=== PATIENT | male | born 2000 | race Caucasian/White ===

== ENCOUNTER → 2021-01-04 14:54 | Outpatient (CLI) | payer MEDICAID, SELFPAY ==
--- NOTE | 2021-01-04 14:57 | US_ITS ---
STUDY: SUPERFICIAL ULTRASOUND - LEFT UPPER ARM REASON FOR EXAM: Male, 20 years old. Palpable lump TECHNIQUE: A superficial ultrasound was performed with real-time and static mcmanus-scale imaging. COMPARISON: None. FINDINGS: Sonographic evaluation of the left upper arm in the area of concern shows a hypoechoic 2.1 x 1.7 x 1.1 cm lymph node. There is evidence of some central hyperemia. No associated fluid collection or other associated lymph node. Short term follow-up recommended to ensure resolution. If there is not improvement over the next 3-4 weeks, biopsy may be recommended US/Ext Non Vasc Limited/Soft Tiss IMPRESSION: Enlarged lymph node corresponds to the palpable lump. Short-term follow-up recommended to assure resolution Electronically Signed: Vikas Ruiz MD at 16:25 EDT , Service support ,
== END ==
PROVIDERS: Referring Provider Physician Assistant Surgical; Visit Provider Physician Assistant Surgical
DX: L02.414 Cutaneous abscess of left upper limb (principal)
CPT/HCPCS: 76882

== ENCOUNTER → 2022-05-13 | Outpatient (CLI) | payer MEDICAID, SELFPAY ==
[2022-05-13 10:22] LABS: Bacteria 0 SEEN /hpf (None Seen); Mucous, Urine 0 SEEN /hpf (<or=2+); Red Blood Cells-Urine 0 SEEN /hpf (0-5); White Blood Cells 0 SEEN /hpf (0-5)
[2022-05-13 10:32] LABS: Color, Urine Yellow (Yellow); Glucose, Dipstick Normal (Normal); Ketone-Dipstick Negative (Negative); Leukocyte Esterase-Dipstick Negative /ul (Negative); Nitrite-Dipstick Negative (Negative); Occult Blood-Urine Negative /ul (Negative); Protein-Dipstick Negative (Negative); Specific Gravity, Urine 1.015 (1.002-1.030); Urine Bilirubin Dipstick Negative (Negative); Urine Clarity Sl. Cloudy (Clear); Urine Urobilinogen Normal (Normal)
[2022-05-13 10:38] LABS: Amorphous Sediment 1+; Squamous Epithelial Cells - UA 0-5 SEEN /hpf (0-5)
== END | disposition home or self-care (01) ==
LOC: LABSPEC 09:53
PROVIDERS: Visit Provider Physician Assistant
DX: R39.9 Unspecified symptoms and signs involving the genitourinary system (principal)
CPT/HCPCS: 81001; 87086